=== PATIENT | male | born 1975 | race Caucasian/White ===

== ENCOUNTER → 2021-06-29 | Outpatient (CLI) | payer OTHER ==
[~2021-06-29] MED LIST: NORCO 5-325 TA1 EACH PO
== END ==
LOC: CT 15:01
DX: J32.9 Chronic sinusitis, unspecified (principal); J34.3 Hypertrophy of nasal turbinates; R76.8 Other specified abnormal immunological findings in serum; M06.4 Inflammatory polyarthropathy; M51.36 Other intervertebral disc degeneration, lumbar region; I10 Essential (primary) hypertension
CPT/HCPCS: 70486